=== PATIENT | male | born 1950 | race Caucasian/White ===

== ENCOUNTER → 2020-05-01 | Outpatient (CLI) | payer OTHER ==
[~2020-05-01] MED LIST: ALLERGY RELIEF180 MG PO; APAP500 PO; ASPIR 8181 MG PO; FISH OIL 1,001000 M2 PO; GABAPENTIN 100100 MG; NORCO 5-325 TA1 EACH PO; OXYCODONE-APAP1 EAC4 PO; ZETIA10 MG PO; ZOFRAN4 MG PO
== END ==
LOC: CAT 07:45
PROVIDERS: ATTEND Family Medicine
DX: Z13.6 Encounter for screening for cardiovascular disorders (principal); I25.10 Atherosclerotic heart disease of native coronary artery without angina pectoris; E78.00 Pure hypercholesterolemia, unspecified

== ENCOUNTER → 2020-05-15 | Outpatient (CLI) | payer OTHER | LOC: SJCVCIMAG 10:57 | PROVIDERS: ATTEND Internal Medicine | DX: I49.1 Atrial premature depolarization (principal); R00.0 Tachycardia, unspecified; R93.1 Abnormal findings on diagnostic imaging of heart and coronary circulation; R53.83 Other fatigue; E78.5 Hyperlipidemia, unspecified; I25.10 Atherosclerotic heart disease of native coronary artery without angina pectoris ==